=== PATIENT | female | born 1985 | race Native Hawaiian/Other Pacific Islander ===

== ENCOUNTER 2016-07-08 20:06 | Emergency (ER) | payer OTHER ==
[2016-07-08] MEDS ORDERED: HYDROcod/ACETAM 5/325 MG TABLET PO STA (21:47)
[2016-07-08] MEDS ORDERED: IBUPROFEN 800 MG TABLET PO STA (21:47)
[2016-07-08] MEDS ORDERED: HYDROcod/ACETAM 5/325 MG TABLET ONE (21:54)
[2016-07-08] MEDS ORDERED: IBUPROFEN 800 MG TABLET PO ONE (21:54)
== END 2016-07-08 22:14 | disposition home or self-care (01) ==
DX: K11.20 Sialoadenitis, unspecified (principal); R03.0 Elevated blood-pressure reading, without diagnosis of hypertension
CPT/HCPCS: 99282; 99283; A9270

== ENCOUNTER 2017-03-02 19:58 | Emergency (ER) | payer OTHER ==
--- NOTE | 2017-03-02 20:41 | ED Physician Documentation ---
PD HPI HEENT - Stated complaint Stated Complaint: LT EAR PAIN - Chief complaint Chief Complaint: General - History obtained from History obtained from: Patient - History of Present Illness Timing - onset: How many months ago (she has had pain in the left ear for several weeks or more, hurting more the past week. Seen by PCP and Dx with ? TMJ. Not improved with soft food, NSAIDs.) Timing - details: Intermittant (she will feel very sharp pain at times left face , jaw and seems to come from ear area.) Location: Left ear Worsens: Other (palpation, most often it just seems to happen. Not affected by chewing.). No: Swalllowing Associated symptoms: Other (no rash). No: Fever, Congestion, Swollen nodes, Facial swelling Similar symptoms before: No diagnosis Recently seen: Clinic Review of Systems Constitutional: denies: Fever, Chills, Myalgias Nose: denies: Rhinorrhea / runny nose, Congestion Throat: denies: Dental pain / toothache, Sore throat Cardiac: denies: Chest pain / pressure, Palpitations Respiratory: denies: Dyspnea, Cough GI: denies: Nausea, Vomiting, Diarrhea Skin: denies: Rash, Lesions Neurologic: denies: Focal weakness, Numbness PD PAST MEDICAL HISTORY - Past Medical History Past Medical History: Yes Cardiovascular: Hypertension - Past Surgical History 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 HEENT: Other - Present Medications Home Medications: Ambulatory Orders Medication Instructions Recorded Confirmed Ibuprofen [Motrin] 800 mg PO Q8H PRN #30 tablet 07/08/16 03/02/17 Atenolol 25 mg PO DAILY 03/02/17 03/02/17 Cyclobenzaprine [Flexeril] 10 mg PO QPM 03/02/17 03/02/17 Dexamethasone [Decadron] 4 mg PO DAILY #5 tablet 03/02/17 Tramadol HCl 50 mg PO Q6H PRN #20 tablet 03/02/17 carBAMazepine [TEGretol] 100 mg PO BID #30 tablet 03/02/17 - Allergies Allergies/Adverse Reactions: Allergies Allergy/AdvReac Type Severity Reaction Status Date / Time No Known Drug Allergies Allergy Verified 03/02/17 20:09 - Social History Does the pt smoke?: No Smoking Status: Never smoker Does the pt drink ETOH?: No - Immunizations Immunizations are current?: Yes - POLST Patient has POLST: No PD ED PE NORMAL - Vitals Vital signs reviewed: Yes - General General: Alert and oriented X 3, No acute distress, Well developed/nourished - HEENT HEENT: PERRL, EOMI, Ears normal, Moist mucous membranes, Pharynx benign, Dentition benign, Other (tmj not tender) - Neck Neck: Supple, no meningeal sign, No adenopathy - Cardiac Cardiac: RRR, No murmur - Respiratory Respiratory: Clear bilaterally - Derm Derm: Normal color, Warm and dry, No rash Results - Vitals Vitals: Oxygen O2 Source Room air PD MEDICAL DECISION MAKING - ED course Complexity details: considered differential (the area of pain and brief shooting pains sounds like Trigeminal neuralgia. ), d/w patient Departure - Departure Disposition: 01 Home, Self Care Clinical Impression: Left facial pain, Trigeminal neuralgia of left side of face Condition: Stable Record reviewed to determine appropriate education?: Yes Instructions: ED Neuralgia Trigeminal Follow-Up: Reynaldo De La Vega DO [Primary Care Provider] - [facility] [Provider Group] Prescriptions: carBAMazepine [TEGretol] 100 mg PO BID #30 tablet Dexamethasone [Decadron] 4 mg PO DAILY #5 tablet Tramadol HCl 50 mg PO Q6H PRN #20 tablet PRN Reason: Pain Comments: Stop the ibuprofen and muscle relaxant. Instead use Decadron daily for 5 more days. Add Tylenol or tramadol if needed for pain. Start carbamazepine ( Tegretol) 100 mg twice daily which is a low starting dose. This is used for nerve irritation such as trigeminal neuralgia which is what your symptoms are sounding like. Follow-up with ENT and [facility] for a specialist opinion. Continue usual atenolol. Follow-up with your primary care as well. Discharge Date/Time: 03/02/17 21:42
[2017-03-02] MEDS ORDERED: HYDROcod/ACETAM 5/325 MG TABLET PO STA (21:07)
[2017-03-02] MEDS ORDERED: DEXAMETHASONE 10 MG/ML VIAL PO STA (21:07)
[2017-03-02] MEDS ORDERED: HYDROcod/ACETAM 5/325 MG TABLET ONE (21:18)
[2017-03-02] MEDS ORDERED: DEXAMETHASONE 10 MG/ML VIAL ONE (21:19)
[2017-03-02] MEDS ORDERED: CHERRY SYRUP 10 ML UDC PO ONE (21:19)
[2017-03-02 21:43] VITALS: BP 168/110
== END 2017-03-02 21:42 | disposition home or self-care (01) ==
LOC: ED 19:58
DX: G50.0 Trigeminal neuralgia (principal); I10 Essential (primary) hypertension
CPT/HCPCS: 99283; A9270

== ENCOUNTER 2017-04-13 20:49 | Emergency (ER) | payer OTHER ==
[2017-04-13 22:09] VITALS: BP 145/95
--- NOTE | 2017-04-13 22:20 | XRAY Preliminary Report ---
Exam: XR CHEST 2 VIEW PA/LAT IMPRESSION: Normal 2-view chest radiography. [facility] SITE ID: [id number]
--- NOTE | 2017-04-13 22:22 | ED Physician Documentation ---
PD HPI CHEST PAIN - Stated complaint Stated Complaint: CHEST PX - Chief complaint Chief Complaint: Cardiac - History obtained from History obtained from: Patient - History of Present Illness Timing - onset: Today Timing - details: Gradual onset, Still present Quality: Pressure, Aching Location: Substernal Improved by: Nothing Worsened by: No: Exertion, Inspiration, Palpation, Position Associated symptoms: No: Shortness of air, Diaphoresis, Nausea, Vomiting, Feeling faint / dizzy, General Weakness Similar symptoms before: Has not had sx before Recently seen: Not recently seen - Additional information Additional information: Patient is a 31 year old female wiht no significant past medical history who is presenting to the emergency department for chest pain. patient states that when she woke up from sleep she had a pain or pressure in her chest. Patient states that she thought it was just due to the way she slept. patient reports that she went on with her morning routine. Patient took a nap in the afternoon and the pain still persisted. Patient denies any aggravating or alleviating factors. Patient denies any exertional component or cardiac disease. Review of Systems Constitutional: denies: Fever, Chills Eyes: denies: Decreased vision, Photophobia Ears: denies: Ear pain, Drainage/discharge Nose: denies: Rhinorrhea / runny nose, Congestion, Sinus pressure / pain Throat: denies: Sore throat Cardiac: reports: Chest pain / pressure. 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 HEENT: Other - Present Medications Home Medications: Ambulatory Orders Medication Instructions Recorded Confirmed Atenolol 25 mg PO DAILY 03/02/17 04/13/17 carBAMazepine [TEGretol] 100 mg PO BID #30 tablet 03/02/17 04/13/17 - Allergies Allergies/Adverse Reactions: Allergies Allergy/AdvReac Type Severity Reaction Status Date / Time No Known Drug Allergies Allergy Verified 04/13/17 21:13 - Social History Does the pt smoke?: No Smoking Status: Never smoker Does the pt drink ETOH?: No Does the pt have substance abuse?: No - Immunizations Immunizations are current?: Yes - POLST Patient has POLST: No PD ED PE NORMAL - Vitals Vital signs reviewed: Yes - General General: Alert and oriented X 3, No acute distress, Well developed/nourished - HEENT HEENT: Atraumatic, PERRL, Moist mucous membranes - Neck Neck: Supple, no meningeal sign, No JVD - Cardiac Cardiac: RRR, No murmur, No rub - Respiratory Respiratory: No respiratory distress, Clear bilaterally - Abdomen Abdomen: Soft, Non tender, Non distended - Derm Derm: Normal color, Warm and dry, No rash - Extremities Extremities: No deformity, Normal ROM s pain, No edema, No calf tenderness / cord - Neuro Neuro: Alert and oriented X 3, No motor deficit, No sensory deficit, Normal speech - Psych Psych: Normal mood, Normal affect Results - Vitals Vitals: Vital Signs - 24 hr 04/13/17 04/13/17 04/13/17 20:58 21:09 22:07 Temperature 36.6 C Heart Rate 89 77 78 Respiratory 17 17 16 Rate Blood Pressure 170/112 H 146/95 H 145/95 H O2 Saturation 99 100 100 Oxygen O2 Source Room air - EKG (time done) 2055 Rate: Rate (enter#) (78) Rhythm: NSR [place]: Normal Intervals: Normal [place] QRS: Normal Ischemia: Normal ST segments Compare to prior EKG: Old EKG unavailable - Labs Labs: Laboratory Tests 04/13/17 21:42 Troponin I < 0.04 - Rads (name of study) chest x-ray Radiology: Final report received (normal two view chest) PD MEDICAL DECISION MAKING - ED course Complexity details: reviewed old records, reviewed results, re-evaluated patient , considered differential, d/w patient ED course: Patient was seen and examined at bedside. ekg was performed and within normal limits. Patient's diagnostics were all within normal limits. patient had a HEART score of 1 and PERC score of 0. Patient was well appearing and in no distress. Patient was made aware of her findings. patient required no further work up and was stable for discharge with outpatient follow up. Departure - Departure Disposition: 01 Home, Self Care Clinical Impression: Atypical chest pain Condition: Good Instructions: ED Chest Pain Noncardiac Ch Follow-Up: Reynaldo De La Vega DO [Primary Care Provider] - As Needed Comments: Your diagnostics today were within normal limits. Your pain is unlikely to be cardiac in nature. You should follow up with your doctor if your symptoms persist. You may return to the emergency department at any time for new, worsening or uncontrollable symptoms. Discharge Date/Time: 04/13/17 23:00
--- NOTE | 2017-04-13 22:23 | XRAY Report ---
EXAM: CHEST RADIOGRAPHY EXAM DATE: 04/13/2017 09:54 PM. CLINICAL HISTORY: Chest pressure. COMPARISON: None. TECHNIQUE: 2 views. FINDINGS: Lungs/Pleura: No focal opacities evident. No pleural effusion. No pneumothorax. Normal volumes. Mediastinum: Heart and mediastinal contours are unremarkable. Other: None. IMPRESSION: Normal 2-view chest radiography. [facility] Referring Provider Line: [phone] SITE ID: [id number]
== END 2017-04-13 23:00 | disposition home or self-care (01) ==
LOC: ED 20:49
DX: R07.89 Other chest pain (principal); I10 Essential (primary) hypertension
CPT/HCPCS: 36415; 71020; 84484; 93005; 99283; 99284